=== PATIENT | female | born 1950 | race Two or more races ===

== ENCOUNTER 2018-02-03 11:17 | Emergency (ER) | payer MEDICARE, OTHER ==
[~2018-02-03] VITALS: Ht 160 cm; Wt 66.8 kg
[2018-02-03] MEDS ORDERED: ONDANSETRON HCL/PF 4 MG/2 ML VIAL IVP ONE (12:00)
[2018-02-03] MEDS ORDERED: MECLIZINE HCL 12.5 MG TABLET PO ONE (12:00)
[2018-02-03] MEDS ORDERED: IV NS 0.9% 1,000 ML BAG IV ONE (12:00)
[2018-02-03] MEDS ORDERED: ONDANSETRON HCL/PF 4 MG/2 ML VIAL ONE (12:02)
[2018-02-03] MEDS ORDERED: MECLIZINE HCL 25 MG TABLET ONE (12:02)
[2018-02-03 12:16] LABS: HEMATOCRIT 36 % (33-45); HEMOGLOBIN 12.4 g/dL (11.5-14.8); MEAN CORPUSCULAR HEMOGLOBIN 30 PG (26.0-33.0); MEAN CORPUSCULAR HGB CONC 34 g/dl (31.0-36.0); MEAN CORPUSCULAR VOLUME 89 fL (82-100); NEUTROPHILS % (AUTO) 57.7 % (43.0-81.0); PLATELET COUNT (AUTO) 215 /CMM (150-450); RDW COEFFICIENT OF VARIATION 13.7 (11.5-15.0); RED BLOOD CELL COUNT(AUTO) 4.07 MIL/uL (4.0-5.2); WHITE BLOOD COUNT (AUTO) 6.2 K/uL (4.3-11.0)
[2018-02-03 12:17] LABS: BASOPHILS # (AUTO) 0.1 /CMM (0.0-0.2); BASOPHILS % (AUTO) 0.9 % (0.0-2.0); EOSINOPHILS % (AUTO) 1.7 % (0.0-6.0); LYMPHOCYTES # (AUTO) 2.1 /CMM (0.8-4.8); LYMPHOCYTES % (AUTO) 33.1 % (20.0-44.0); MONOCYTES # (AUTO) 0.4 /CMM (0.1-1.30); MONOCYTES % (AUTO) 6.6 % (2.0-12.0); NEUTROPHILS # (AUTO) 3.6 /CMM (1.8-8.9)
--- NOTE | 2018-02-03 12:17 | NUR ---
PT IS HERE C/O DIZZINESS WHILE WALKING X 4 DAYS & ALSO C/O MCCULLOUGH & NAUSEA. PT AAOX3, VSS, ABLE TO SPEAK WITH COMPLETE SENTENCES, NO FACIAL DROOPING, ABLE TO MOVE ALL EXT WITH GOOD EQUAL BROKER ASSISTANT. STABLE NAD NOTED @ THIS TIME.
[2018-02-03 12:24] LABS: CALCIUM, SERUM 8.9 mg/dL (8.5-10.1); CARBON DIOXIDE 26 mmol/L (21-32); CHLORIDE 103 mmol/L (98-107); CREATININE 0.7 mg/dL (0.6-1.3); GLUCOSE 109 mg/dL (74-106); POTASSIUM 3.8 mmol/L (3.5-5.1); SODIUM SERUM 135 mmol/L (136-145); UREA NITROGEN, BLOOD 15 mg/dL (7-18)
[2018-02-03 12:28] LABS: INR 0.9 (0.85-1.15)
[2018-02-03 12:30] LABS: ALANINE AMINOTRANSFERASE 34 U/L (12-78); ALBUMIN 3.6 g/dL (3.4-5.0); ALKALINE PHOSPHATASE 60 U/L (46-116); ASPARTATE AMINOTRANSFERASE 20 U/L (15-37); BILIRUBIN,DIRECT 0.1 mg/dL (0.0-0.2); BILIRUBIN,TOTAL 0.4 mg/dL (0.2-1.0); TOTAL PROTEIN, SERUM 7.2 g/dL (6.4-8.2)
[2018-02-03 12:32] LABS: TROPONIN I < 0.017 ng/mL (0.00-0.056)
--- NOTE | 2018-02-03 12:51 | NUR ---
PT AAOX3, STS THAT SHE'S FEELING BETTER. DENIES DIZZINESS, NAUSEA @ THIS TIME. IV NS FLUID INFUSING WELL, NO S/S OF INFILTRATION ON IV SITE. PT RESTING COMFORTABLY.
--- NOTE | 2018-02-03 13:13 | NUR ---
PT TO CT VIA WHEELCHAIR.
--- NOTE | 2018-02-03 13:35 | NUR ---
PT BACK FROM CT, RM# 8
[2018-02-03 14:44] VITALS: BP 137/75
--- NOTE | 2018-02-03 14:44 | NUR ---
Patient discharged to home in stable condition. Written and verbal after care instructions given. Patient verbalizes understanding of instruction.IV removed. Catheter intact and site benign. Pressure and 4x4 applied to site. No bleeding noted.
== END 2018-02-03 14:45 | disposition home or self-care (01) ==
LOC: ER 11:21 → EDBD 11:21 → ER 14:45
DX: H81.10 Benign paroxysmal vertigo, unspecified ear (principal); K21.9 Gastro-esophageal reflux disease without esophagitis; F41.9 Anxiety disorder, unspecified
CPT/HCPCS: 36415; 70450; 71045; 80048; 80076; 84484; 85025; 85730; 93005; 96361; 96374; 99285; A4606; J2405; J7030; J8597; Z7610

== ENCOUNTER 2019-04-02 11:08 | Emergency (ER) | payer MEDICARE, OTHER ==
[~2019-04-02] VITALS: Ht 160 cm; Wt 64.9 kg
[2019-04-02 11:19] VITALS: BP 155/78
[2019-04-02] MEDS ORDERED: ANCEF 1 GM/50 ML D5W IV ONE ×2 (12:00)
[2019-04-02] MEDS ORDERED: CEFAZOLIN 1 GM VIAL IM ONE (12:00)
== END 2019-04-02 12:39 | disposition home or self-care (01) ==
LOC: ER 11:08
DX: L03.011 Cellulitis of right finger (principal); Z90.89 Acquired absence of other organs
CPT/HCPCS: 96372; 99283; J0690; J7060

== ENCOUNTER 2020-11-13 14:03 | Emergency (ER) | payer MEDICARE, OTHER ==
[~2020-11-13] VITALS: Ht 160 cm; Wt 72.6 kg
--- NOTE | 2020-11-13 14:15 | NUR ---
Patient is c/o cough and congestion, sorethroat and headache x 2 weeks. Patient a/ox4, breathing even and unlabored, no sob noted, needs attended. Attached to the bus driver/monitor.
[2020-11-13] MEDS ORDERED: MORPHINE SULFATE INJ 2 MG/ML DISP.SYRIN IV ONE (14:30)
[2020-11-13] MEDS ORDERED: ONDANSETRON HCL/PF 4 MG/2 ML VIAL IVP ONE (14:30)
--- NOTE | 2020-11-13 14:30 | NUR ---
influenza swab test taken send to the lab.
--- NOTE | 2020-11-13 14:30 | NUR ---
covid rapid test swab taken, send to the lab.
[2020-11-13] MEDS ORDERED: MORPHINE SULFATE INJ 4 MG/ML DISP.SYRIN ONE (14:31)
[2020-11-13] MEDS ORDERED: ONDANSETRON HCL/PF 4 MG/2 ML VIAL ONE (14:31)
--- NOTE | 2020-11-13 14:35 | NUR ---
IV LINE ESTABLISHED, BLOOD DRAWN AND SENT TO LAB.
[2020-11-13 14:42] LABS: BASOPHILS # (AUTO) 0.1 /CMM (0.0-0.2); BASOPHILS % (AUTO) 1.3 % (0.0-2.0); EOSINOPHILS % (AUTO) 9.2 % (0.0-6.0); HEMATOCRIT 37 % (33-45); HEMOGLOBIN 12.3 g/dL (11.5-14.8); LYMPHOCYTES # (AUTO) 2.3 /CMM (0.8-4.8); LYMPHOCYTES % (AUTO) 32.2 % (20.0-44.0); MEAN CORPUSCULAR HGB CONC 33 g/dl (31.0-36.0); MEAN CORPUSCULAR VOLUME 90 fL (82-100); MONOCYTES # (AUTO) 0.5 /CMM (0.1-1.30); MONOCYTES % (AUTO) 6.8 % (2.0-12.0); NEUTROPHILS # (AUTO) 3.7 /CMM (1.8-8.9); NEUTROPHILS % (AUTO) 50.5 % (43.0-81.0); PLATELET COUNT (AUTO) 224 /CMM (150-450); RED BLOOD CELL COUNT(AUTO) 4.12 MIL/uL (4.0-5.2); WHITE BLOOD COUNT (AUTO) 7.3 K/uL (4.3-11.0)
[2020-11-13 14:50] LABS: CALCIUM, SERUM 8.5 mg/dL (8.5-10.1); CARBON DIOXIDE 32 mmol/L (21-32); CHLORIDE 103 mmol/L (98-107); CREATININE 0.7 mg/dL (0.6-1.3); SODIUM SERUM 141 mmol/L (136-145); UREA NITROGEN, BLOOD 16 mg/dL (7-18)
[2020-11-13 14:56] LABS: ALANINE AMINOTRANSFERASE 29 U/L (12-78); ALBUMIN 3.6 g/dL (3.4-5.0); ALKALINE PHOSPHATASE 75 U/L (46-116); ASPARTATE AMINOTRANSFERASE 20 U/L (15-37); BILIRUBIN,DIRECT 0.1 mg/dL (0.0-0.2); BILIRUBIN,TOTAL 0.4 mg/dL (0.2-1.0); TOTAL PROTEIN, SERUM 7.1 g/dL (6.4-8.2)
[2020-11-13 14:57] LABS: GLUCOSE 139 mg/dL (74-106)
[2020-11-13] MEDS ORDERED: GUAI600T53 PO (15:54)
--- NOTE | 2020-11-13 16:04 | NUR ---
PATIENT A/OX4, BREATHING EVEN AND UNLABORED, NO SOB NOTED. RX INSTRUCTIONS PROVIDED. IV removed. Catheter intact and site benign. Pressure and 4x4 applied to site. No bleeding noted.Patient discharged to home in stable condition. Written and verbal after care instructions given. Patient verbalizes understanding of instruction.
[2020-11-13 16:05] VITALS: BP 156/85
== END 2020-11-13 16:05 | disposition home or self-care (01) ==
LOC: ER 14:03
DX: R05 Cough (principal); R51.9 Headache, unspecified; Z20.822 Contact with and (suspected) exposure to COVID-19; J98.11 Atelectasis
CPT/HCPCS: 36415; 70450; 71045; 80048; 80076; 84484; 85025; 87426; 87804; 93005; 96374; 96375; 99285; C9803; J2270; J2405

== ENCOUNTER → 2021-04-24 | Emergency (ER) | payer OTHER ==
[~2021-04-24] VITALS: Ht 160 cm; Wt 63.5 kg
[~2021-04-24] MED LIST: ALBU8.5H8 INH; ALBUTEROL FS 2.5 MG/3 ML VIAL.NEB NEB ONE; ALBUTEROL FS 2.5 MG/3 ML VIAL.NEB ONE; AZIT250T13 PO; GUAI600T53 PO; IPRATROPIUM NEB FS 0.5 MG/2.5 ML AMPUL.NEB NEB ONE; IPRATROPIUM NEB FS 0.5 MG/2.5 ML AMPUL.NEB ONE; PRED20TA PO; methylPREDNISolone SOD SUCC 125 MG/2ML VIAL IV ONE; methylPREDNISolone SOD SUCC 125 MG/2ML VIAL ONE
--- NOTE | 2021-04-24 12:21 | NUR ---
TO ER BED 7,CHANGED INTO [facility],MONITORED,AWAITING MD RICHARDSON
--- NOTE | 2021-04-24 12:21 | NUR ---
Patient came to the er bed BIB self C/O "congestive feeling" w/ headache in the back of her head since 5X days ago. Patient states that she has been feverish, denies taking any antipyretics/ tylenol. Patient is alert and oriented X4. Patient feels short of breath. breathing evenly on room air at 98%. Patient is connected to the monitor
--- NOTE | 2021-04-24 12:37 | NUR ---
xray at bedside.
--- NOTE | 2021-04-24 12:38 | NUR ---
RT at bedside for breathing treatment.
--- NOTE | 2021-04-24 12:46 | NUR ---
Covid test Rapid and PCR collected and sent to the lab.
[2021-04-24 12:57] LABS: BASOPHILS % (AUTO) 0.7 % (0.0-2.0); EOSINOPHILS % (AUTO) 4.5 % (0.0-6.0); HEMATOCRIT 40 % (33-45); HEMOGLOBIN 13.3 g/dL (11.5-14.8); LYMPHOCYTES % (AUTO) 31.9 % (20.0-44.0); MEAN CORPUSCULAR HGB CONC 33 g/dl (31.0-36.0); MEAN CORPUSCULAR VOLUME 89 fL (82-100); MONOCYTES # (AUTO) 0.6 K/uL (0.1-1.30); MONOCYTES % (AUTO) 9.6 % (2.0-12.0); NEUTROPHILS # (AUTO) 3.4 K/uL (1.8-8.9); NEUTROPHILS % (AUTO) 53.3 % (43.0-81.0); PLATELET COUNT (AUTO) 221 K/uL (150-450); RED BLOOD CELL COUNT(AUTO) 4.52 MIL/uL (4.0-5.2); WHITE BLOOD COUNT (AUTO) 6.3 K/uL (4.3-11.0)
[2021-04-24 13:07] LABS: CALCIUM, SERUM 8.9 mg/dL (8.5-10.1); CARBON DIOXIDE 27 mmol/L (21-32); CHLORIDE 103 mmol/L (98-107); CREATININE 0.8 mg/dL (0.6-1.3); GLUCOSE 104 mg/dL (74-106); POTASSIUM 4.2 mmol/L (3.5-5.1); SODIUM SERUM 139 mmol/L (136-145); UREA NITROGEN, BLOOD 20 mg/dL (7-18)
[2021-04-24 13:19] LABS: ALANINE AMINOTRANSFERASE 67 U/L (12-78); ALBUMIN 3.9 g/dL (3.4-5.0); ALKALINE PHOSPHATASE 124 U/L (46-116); ASPARTATE AMINOTRANSFERASE 44 U/L (15-37); BILIRUBIN,DIRECT 0.1 mg/dL (0.0-0.2); BILIRUBIN,TOTAL 0.3 mg/dL (0.2-1.0); TOTAL PROTEIN, SERUM 8.2 g/dL (6.4-8.2)
--- NOTE | 2021-04-24 14:48 | NUR ---
IV removed. Catheter intact and site benign. Pressure and 4x4 applied to site. No bleeding noted.
--- NOTE | 2021-04-24 14:48 | NUR ---
Patient discharged to home in stable condition. Written and verbal after care instructions given. Patient verbalizes understanding of instruction.
[2021-04-24 15:13] VITALS: BP 133/76
== END | disposition home or self-care (01) ==
LOC: ER 12:09
DX: J20.9 Acute bronchitis, unspecified (principal); Z20.822 Contact with and (suspected) exposure to COVID-19; Z90.710 Acquired absence of both cervix and uterus; F41.9 Anxiety disorder, unspecified
CPT/HCPCS: 36415; 71045; 80048; 80076; 83880; 84484; 85025; 87426; 93005 ×2; 94640 ×4; 96374; 99285; J2930; C9803; U0003

== ENCOUNTER 2021-10-07 13:26 | Emergency (ER) | payer OTHER ==
[~2021-10-07] VITALS: Ht 160 cm; Wt 63.5 kg
[~2021-10-07 13:26] MED LIST changes: -ALBUTEROL FS 2.5 MG/3 ML VIAL.NEB NEB ONE; -ALBUTEROL FS 2.5 MG/3 ML VIAL.NEB ONE; -IPRATROPIUM NEB FS 0.5 MG/2.5 ML AMPUL.NEB NEB ONE; -IPRATROPIUM NEB FS 0.5 MG/2.5 ML AMPUL.NEB ONE; -methylPREDNISolone SOD SUCC 125 MG/2ML VIAL IV ONE; -methylPREDNISolone SOD SUCC 125 MG/2ML VIAL ONE
--- NOTE | 2021-10-07 14:05 | NUR ---
PT CAME TO ER C/O EPIGASTRIC AREA PAIN X 3 WEEKS, WORSE WHEN BREATHING. AAOX4, BREATHING EVEN AND UNLABORED, NOT IN RESP DISTRESS. POX 98% ON RA. CHANGED TO GOWN. WILL CONTINUE TO MONITOR.
[2021-10-07 14:38] LABS: BASOPHILS # (AUTO) 0.1 K/uL (0.0-0.2); BASOPHILS % (AUTO) 1.4 % (0.0-2.0); EOSINOPHILS % (AUTO) 6.3 % (0.0-6.0); HEMATOCRIT 38 % (33-45); HEMOGLOBIN 12.7 g/dL (11.5-14.8); LYMPHOCYTES # (AUTO) 1.9 K/uL (0.8-4.8); LYMPHOCYTES % (AUTO) 25.5 % (20.0-44.0); MEAN CORPUSCULAR HGB CONC 33 g/dl (31.0-36.0); MEAN CORPUSCULAR VOLUME 89 fL (82-100); MONOCYTES # (AUTO) 0.5 K/uL (0.1-1.30); MONOCYTES % (AUTO) 6.2 % (2.0-12.0); NEUTROPHILS # (AUTO) 4.6 K/uL (1.8-8.9); NEUTROPHILS % (AUTO) 60.6 % (43.0-81.0); PLATELET COUNT (AUTO) 228 K/uL (150-450); RED BLOOD CELL COUNT(AUTO) 4.27 MIL/uL (4.0-5.2); WHITE BLOOD COUNT (AUTO) 7.6 K/uL (4.3-11.0)
[2021-10-07 14:52] LABS: CALCIUM, SERUM 8.8 mg/dL (8.5-10.1); CARBON DIOXIDE 24 mmol/L (21-32); CHLORIDE 105 mmol/L (98-107); CREATININE 0.7 mg/dL (0.6-1.3); GLUCOSE 101 mg/dL (74-106); POTASSIUM 3.9 mmol/L (3.5-5.1); SODIUM SERUM 137 mmol/L (136-145); UREA NITROGEN, BLOOD 24 mg/dL (7-18)
[2021-10-07 14:58] LABS: ALANINE AMINOTRANSFERASE 26 U/L (12-78); ALBUMIN 3.7 g/dL (3.4-5.0); ALKALINE PHOSPHATASE 69 U/L (46-116); ASPARTATE AMINOTRANSFERASE 14 U/L (15-37); BILIRUBIN,DIRECT 0.1 mg/dL (0.0-0.2); BILIRUBIN,TOTAL 0.4 mg/dL (0.2-1.0); LIPASE 80 U/L (73-393); TOTAL PROTEIN, SERUM 7.2 g/dL (6.4-8.2)
--- NOTE | 2021-10-07 15:41 | NUR ---
COVID SWAB DONE AND SENT TO LAB
--- NOTE | 2021-10-07 16:10 | NUR ---
urine sample obtained and sent to lab
[2021-10-07] MEDS ORDERED: ASPIRIN 325 MG TABLET PO ONE (16:30)
[2021-10-07] MEDS ORDERED: ASPIRIN 325 MG TABLET ONE (16:31)
[2021-10-07] MEDS ORDERED: AMOX/CLAVULANATE 875 MG TABLET PO ONE (17:00)
[2021-10-07 17:07] LABS: BILIRUBIN,URINE NEGATIVE (NEGATIVE); COLOR,URINE YELLOW (YELLOW); LEUKOCYTE ESTERASE ,URINE NEGATIVE (NEGATIVE); NITRITE, URINE NEGATIVE (NEGATIVE); PH,URINE 5.5 (5.0-8.0); PROTEIN,URINE NEGATIVE (NEGATIVE); UGLUCOSE NEGATIVE (NEGATIVE); UROBILINOGEN,URINE 0.2 EU/dL (0.2)
[2021-10-07 17:21] LABS: BACTERIA,URINE None seen /HPF (None Seen); RBC,URINE 0-2 /HPF (0-2); SQUAMOUS EPITHELIAL CELL,UR Rare /HPF (None Seen); WBC,URINE 0-2 /HPF (0-3)
[2021-10-07] MEDS ORDERED: AMOX/CLAVULANATE 875 MG TABLET ONE (17:29)
--- NOTE | 2021-10-07 17:31 | NUR ---
AUGMENTIN ADMINISTERED
[2021-10-07] MEDS ORDERED: AMOX1TAB16 PO (18:26)
--- NOTE | 2021-10-07 18:45 | NUR ---
Patient discharged to home in stable condition. Written and verbal after care instructions given. Patient verbalizes understanding of instruction.
[2021-10-07 18:46] VITALS: BP 129/69
== END 2021-10-07 18:49 | disposition home or self-care (01) ==
LOC: ER 13:28
DX: J32.9 Chronic sinusitis, unspecified (principal); I49.1 Atrial premature depolarization; K21.9 Gastro-esophageal reflux disease without esophagitis; F41.9 Anxiety disorder, unspecified; Z90.710 Acquired absence of both cervix and uterus; Z79.899 Other long term (current) drug therapy; Z20.822 Contact with and (suspected) exposure to COVID-19
CPT/HCPCS: 36415; 71046; 80048-TC; 80076-TC; 81001; 83690-TC; 84484-TC; 85025-TC; C9803

== ENCOUNTER 2022-11-28 18:40 | Emergency (ER) | payer OTHER ==
[~2022-11-28] VITALS: Ht 149.9 cm; Wt 69.0 kg
[~2022-11-28 18:40] MED LIST changes: +AMOX1TAB16 PO
--- NOTE | 2022-11-28 23:30 | NUR ---
BIBFAMILY WITH CC OF ABSCESS ON ABDOMINAL AREA, +CELLULITIS, AND ON LEFT KNUCKLE. -MEDS TAKEN. PATIENT IS AAOX4. ABLE TO MAKE NEEDS KNOWN. AMBULATORY. PLACED COMFORTABLY IN BED. VITALS CHECKED.
--- NOTE | 2022-11-28 23:55 | NUR ---
SEEN BY DR DONG AT BEDSIDE
[2022-11-29] MEDS ORDERED: LIDOCAINE 2%-EPI 1:100,000 30 ML VIAL TP ONE
[2022-11-29] MEDS ORDERED: LIDOCAINE 1%-EPI 1:100,000 20 ML VIAL ONE (00:17)
--- NOTE | 2022-11-29 00:45 | NUR ---
DR IKER GUAN AT PT'S BEDSIDE FOR I &D
[2022-11-29] MEDS ORDERED: CEPH500C2 PO (00:50)
[2022-11-29] MEDS ORDERED: SULF1TAB48 PO (00:50)
--- NOTE | 2022-11-29 01:10 | NUR ---
Patient discharged to home in stable condition. RX Written and verbal after care instructions given. Patient verbalizes understanding of instruction.
[2022-11-29 01:30] VITALS: BP 140/85
== END 2022-11-29 01:31 | disposition home or self-care (01) ==
LOC: ER 18:45 → EDBD 18:45 → ER 11-29 01:31
DX: L03.311 Cellulitis of abdominal wall (principal); L02.211 Cutaneous abscess of abdominal wall; F41.9 Anxiety disorder, unspecified; Z90.49 Acquired absence of other specified parts of digestive tract; Z79.899 Other long term (current) drug therapy
CPT/HCPCS: 99284; 10060; A6403; J3490